=== PATIENT | female | born 1975 | race American Indian/Alaskan Native ===

== ENCOUNTER 2019-11-30 10:21 | Outpatient (CLI) | payer OTHER ==
--- NOTE | 2019-11-30 11:40 | XRay Report ---
PELVIS ONE VIEW INDICATION / CLINICAL INFORMATION: STROKE,FIBROMUSCULAR DYSPLASIA,EPILEPSY, HEADACHES. COMPARISON: None available. FINDINGS: No significant skeletal abnormality Signer Name: Stas Castanon MD FACR Signed: 11/30/2019 11:35 AM Workstation Name: [id number]
--- NOTE | 2019-11-30 11:43 | XRay Report ---
LUMBAR SPINE 3 VIEWS INDICATION / CLINICAL INFORMATION: STROKE,FIBROMUSCULAR DYSPLASIA,EPILEPSY, HEADACHES. COMPARISON: None available. FINDINGS: No significant skeletal abnormality. Alignment is normal. Signer Name: Stas Castanon MD FACR Signed: 11/30/2019 11:39 AM Workstation Name: [id number]
== END 2019-11-30 10:22 | disposition home or self-care (01) ==
LOC: XRAY 10:21
PROVIDERS: ATTEND Internal Medicine
DX: G40.909 Epilepsy, unspecified, not intractable, without status epilepticus (principal); I63.9 Cerebral infarction, unspecified; R51.9 Headache, unspecified; Q79.8 Other congenital malformations of musculoskeletal system
CPT/HCPCS: 72100; 72170